=== PATIENT | female | born 1980 | race Caucasian/White ===

== ENCOUNTER 2021-06-27 11:59 | Inpatient (IN) | payer OTHER ==
[2021-06-27] MEDS ORDERED: Ventolin HFA Inhaler 60 PUFF INHALER ONE (12:47)
[2021-06-27 12:58] LABS: #Eosinphils 0.2 10x3/uL (0.0-0.5); #Monocytes 0.6 10x3/uL (0.0-1.1); #Neutrophils 10.1 10x3/uL (1.5-8.4); %Basophils 0.2 % (0.0-2.0); %Eosinophils 1.3 % (0.0-6.0); %Lymphocytes 10.5 % (18.0-47.0); %Monocytes 5.2 % (0.0-10.0); %Neutrophils 81.7 % (40.0-75.0); Hemoglobin 13.6 g/dL (12.0-15.5); Mean Corpuscular HGB CONC 33.1 g/dL (32.0-36.0); Mean Corpuscular Hemoglobin 30.8 pg (27.0-33.0); Mean Corpuscular Volume 93.2 fl (81.6-98.3); Platelet Count 318 10x3/uL (150-450); RBC Distribution Width 12.5 % (11.5-14.5); Red Blood Cell (RBC) Count 4.41 10x6/uL (3.90-5.03); White Blood Cell (WBC) Count 12.3 10x3/uL (3.5-10.5)
[2021-06-27 14:01] LABS: Albumin 3.2 g/dL (3.5-5.0); Alkaline Phosphatase 85 U/L (40-110); Anion Gap 15 mmol/L (10-20); BUN (Urea Nitrogen) 11 mg/dL (7.0-18.7); Bilirubin, Total 0.6 mg/dL (0.2-1.2); Calc. Creatinine Clearance 0 mL/min (70-130); Calcium 8.3 mg/dL (7.8-10.44); Carbon Dioxide 21 mmol/L (22-29); Chloride 107 mmol/L (98-107); Globulin 2.6 g/dL (2.4-3.5); Glucose 98 mg/dL (70-105); Potassium 3.9 mmol/L (3.5-5.1); Protein, Total 5.8 g/dL (6.0-8.3); Sodium 139 mmol/L (136-145)
[2021-06-27 14:02] LABS: ALT (SGPT) 53 U/L (8-55); AST (SGOT) 44 U/L (5-34)
[2021-06-27 15:32] LABS: BHCG - Serum Negative (NEGATIVE); Pregs Control Background? CLEAR/WHITE (CLR/WHITE); Pregs Control Bar Appear? YES (CONTROL BAR)
[2021-06-27] MEDS ORDERED: Dexamethasone 10 MG/ML VIAL ONE (16:55)
[2021-06-27] MEDS ORDERED: Acetaminophen 650 MG Suppository PR PRN (17:12)
[2021-06-27] MEDS ORDERED: Ondansetron ODT 4 MG TAB PO PRN (17:12)
[2021-06-27] MEDS: Benzonatate 100 MG CAP PO PRN (21:17)
[2021-06-27] MEDS: Acetaminophen 325 MG TAB PO PRN (21:17)
[2021-06-27 22:32] VITALS: BMI 31.8
[2021-06-27] MEDS: Ventolin HFA Inhaler 60 PUFF INHALER INH SCH (22:45)
[2021-06-28] MEDS ORDERED: Hydrocortisone 2.5% Cream 30 GM TUBE TOP PRN (03:00)
[2021-06-28] MEDS: Ventolin HFA Inhaler 60 PUFF INHALER INH SCH ×6 (03:15→23:02)
[2021-06-28 05:26] LABS: ALT (SGPT) 51 U/L (8-55); AST (SGOT) 33 U/L (5-34); Albumin 3.2 g/dL (3.5-5.0); Alkaline Phosphatase 88 U/L (40-110); Anion Gap 15 mmol/L (10-20); BUN (Urea Nitrogen) 8 mg/dL (7.0-18.7); Bilirubin, Total 0.3 mg/dL (0.2-1.2); Calc. Creatinine Clearance 148 mL/min (70-130); Calcium 8.8 mg/dL (7.8-10.44); Carbon Dioxide 23 mmol/L (22-29); Chloride 108 mmol/L (98-107); Globulin 2.8 g/dL (2.4-3.5); Glucose 170 mg/dL (70-105); Potassium 4.5 mmol/L (3.5-5.1); Sodium 141 mmol/L (136-145)
[2021-06-28 05:37] LABS: #Monocytes 0.3 10x3/uL (0.0-1.1); %Basophils 0.3 % (0.0-2.0); %Lymphocytes 8.8 % (18.0-47.0); %Monocytes 4.3 % (0.0-10.0); %Neutrophils 84.6 % (40.0-75.0); Hemoglobin 13.2 g/dL (12.0-15.5); Mean Corpuscular HGB CONC 32.9 g/dL (32.0-36.0); Mean Corpuscular Hemoglobin 30.6 pg (27.0-33.0); Mean Corpuscular Volume 92.8 fl (81.6-98.3); Mean Platelet Volume 9.5 fl (7.4-10.4); Platelet Count 254 10x3/uL (150-450); RBC Distribution Width 12.3 % (11.5-14.5); Red Blood Cell (RBC) Count 4.32 10x6/uL (3.90-5.03); White Blood Cell (WBC) Count 7.1 10x3/uL (3.5-10.5)
[2021-06-28] MEDS ORDERED: Dexamethasone 20 MG/5 ML VIAL SLOW IVP SCH (09:00)
[2021-06-28] MEDS: Cholecalciferol (Vitamin D3) 400 UNITS TAB PO SCH (09:36)
[2021-06-28] MEDS: Ascorbic Acid 500 mg Chewable Tablet PO SCH (09:37)
[2021-06-28] MEDS: Enoxaparin Sodium 40 MG/0.4 ML SYRINGE SC SCH (09:37)
[2021-06-28] MEDS: Zinc Sulfate 220 MG CAP PO SCH (09:37)
[2021-06-28] MEDS: Benzonatate 100 MG CAP PO PRN ×2 (09:38→20:51)
[2021-06-28] MEDS ORDERED: Ibuprofen 400 MG TAB PO PRN (12:39)
[2021-06-28] MEDS: Dexamethasone 20 MG/5 ML VIAL SLOW IVP SCH (20:51)
[2021-06-29] MEDS: Ventolin HFA Inhaler 60 PUFF INHALER INH SCH ×6 (03:23→23:00)
[2021-06-29 05:56] LABS: #Monocytes 0.5 10x3/uL (0.0-1.1); %Basophils 0.1 % (0.0-2.0); %Lymphocytes 7.3 % (18.0-47.0); %Monocytes 3.3 % (0.0-10.0); Hemoglobin 12.4 g/dL (12.0-15.5); Mean Corpuscular Hemoglobin 30.6 pg (27.0-33.0); Mean Corpuscular Volume 92.8 fl (81.6-98.3); Mean Platelet Volume 9.4 fl (7.4-10.4); Platelet Count 303 10x3/uL (150-450); RBC Distribution Width 12.5 % (11.5-14.5); Red Blood Cell (RBC) Count 4.05 10x6/uL (3.90-5.03); White Blood Cell (WBC) Count 15.9 10x3/uL (3.5-10.5)
[2021-06-29] MEDS: Acetaminophen 325 MG TAB PO PRN (05:56)
[2021-06-29 06:08] LABS: ALT (SGPT) 41 U/L (8-55); AST (SGOT) 19 U/L (5-34); Albumin 3.3 g/dL (3.5-5.0); Alkaline Phosphatase 76 U/L (40-110); Anion Gap 14 mmol/L (10-20); BUN (Urea Nitrogen) 14 mg/dL (7.0-18.7); Bilirubin, Total 0.3 mg/dL (0.2-1.2); Calc. Creatinine Clearance 153 mL/min (70-130); Calcium 9.1 mg/dL (7.8-10.44); Carbon Dioxide 22 mmol/L (22-29); Chloride 109 mmol/L (98-107); Globulin 2.6 g/dL (2.4-3.5); Glucose 196 mg/dL (70-105); Potassium 4.4 mmol/L (3.5-5.1); Protein, Total 5.9 g/dL (6.0-8.3); Sodium 141 mmol/L (136-145)
[2021-06-29] MEDS: Cholecalciferol (Vitamin D3) 400 UNITS TAB PO SCH (09:26)
[2021-06-29] MEDS: Dexamethasone 20 MG/5 ML VIAL SLOW IVP SCH ×2 (09:26→20:57)
[2021-06-29] MEDS: Ascorbic Acid 500 mg Chewable Tablet PO SCH (09:26)
[2021-06-29] MEDS: Enoxaparin Sodium 40 MG/0.4 ML SYRINGE SC SCH (09:26)
[2021-06-29] MEDS: Zinc Sulfate 220 MG CAP PO SCH (09:26)
[2021-06-29] MEDS: cefTRIAXone\\ROCEPHIN 2 GM in Sodium Chloride 0.9% 100 ML IVPB SCH (17:32)
[2021-06-29] MEDS: Doxycycline 100 MG CAP PO SCH (20:57)
[2021-06-30] MEDS: Ventolin HFA Inhaler 60 PUFF INHALER INH SCH ×6 (02:55→23:00)
[2021-06-30 05:40] LABS: #Basophils 0.1 10x3/uL (0.0-0.2); %Basophils 0.3 % (0.0-2.0); %Lymphocytes 9.6 % (18.0-47.0); %Monocytes 5.3 % (0.0-10.0); %Neutrophils 81.9 % (40.0-75.0); Hemoglobin 12.6 g/dL (12.0-15.5); Mean Corpuscular HGB CONC 32.1 g/dL (32.0-36.0); Mean Corpuscular Hemoglobin 30.1 pg (27.0-33.0); Mean Corpuscular Volume 93.8 fl (81.6-98.3); Mean Platelet Volume 9.4 fl (7.4-10.4); Platelet Count 386 10x3/uL (150-450); RBC Distribution Width 12.5 % (11.5-14.5); Red Blood Cell (RBC) Count 4.18 10x6/uL (3.90-5.03); White Blood Cell (WBC) Count 19.5 10x3/uL (3.5-10.5)
[2021-06-30 05:45] LABS: Anion Gap 16 mmol/L (10-20); BUN (Urea Nitrogen) 15 mg/dL (7.0-18.7); CRP (Inflammatory) 3.03 mg/dL (= or < 0.5); Calc. Creatinine Clearance 141 mL/min (70-130); Calcium 9.3 mg/dL (7.8-10.44); Carbon Dioxide 23 mmol/L (22-29); Chloride 107 mmol/L (98-107); Glucose 179 mg/dL (70-105); Potassium 4.4 mmol/L (3.5-5.1); Sodium 142 mmol/L (136-145)
[2021-06-30] MEDS: Cholecalciferol (Vitamin D3) 400 UNITS TAB PO SCH (09:35)
[2021-06-30] MEDS: Enoxaparin Sodium 40 MG/0.4 ML SYRINGE SC SCH (09:35)
[2021-06-30] MEDS: Dexamethasone 20 MG/5 ML VIAL SLOW IVP SCH ×2 (09:35→21:05)
[2021-06-30] MEDS: Ascorbic Acid 500 mg Chewable Tablet PO SCH (09:35)
[2021-06-30] MEDS: Doxycycline 100 MG CAP PO SCH ×2 (09:39→21:05)
[2021-06-30] MEDS: Zinc Sulfate 220 MG CAP PO SCH (13:02)
[2021-06-30] MEDS: cefTRIAXone\\ROCEPHIN 2 GM in Sodium Chloride 0.9% 100 ML IVPB SCH (18:00)
[2021-06-30] MEDS: Benzonatate 100 MG CAP PO PRN (21:05)
[2021-07-01] MEDS: Ventolin HFA Inhaler 60 PUFF INHALER INH SCH ×6 (03:00→23:02)
[2021-07-01] MEDS: Ascorbic Acid 500 mg Chewable Tablet PO SCH (08:53)
[2021-07-01] MEDS: Dexamethasone 20 MG/5 ML VIAL SLOW IVP SCH ×2 (08:53→21:48)
[2021-07-01] MEDS: Cholecalciferol (Vitamin D3) 400 UNITS TAB PO SCH (08:53)
[2021-07-01] MEDS: Doxycycline 100 MG CAP PO SCH ×2 (08:53→21:48)
[2021-07-01] MEDS: Enoxaparin Sodium 40 MG/0.4 ML SYRINGE SC SCH (08:53)
[2021-07-01 11:28] LABS: Hemoglobin 13.1 g/dL (12.0-15.5); MDiff Complete? YES; Mean Corpuscular HGB CONC 32.8 g/dL (32.0-36.0); Mean Corpuscular Hemoglobin 30.5 pg (27.0-33.0); Mean Platelet Volume 9.1 fl (7.4-10.4); Platelet Count 365 10x3/uL (150-450); RBC Distribution Width 12.5 % (11.5-14.5); White Blood Cell (WBC) Count 23.3 10x3/uL (3.5-10.5)
[2021-07-01 12:02] LABS: Lymphocytes 12 % (21-51); Metamyelocyte 1 % (0-0); Monocytes 6 % (0-10); Neutrophil 81 % (42-75)
[2021-07-01 12:03] LABS: Platelet Morphology Comment Appears Adequate
[2021-07-01] MEDS: Zinc Sulfate 220 MG CAP PO SCH (12:55)
[2021-07-01] MEDS: cefTRIAXone\\ROCEPHIN 2 GM in Sodium Chloride 0.9% 100 ML IVPB SCH (17:44)
[2021-07-02] MEDS: Ventolin HFA Inhaler 60 PUFF INHALER INH SCH ×6 (03:00→22:20)
[2021-07-02 04:56] LABS: Hemoglobin 13.7 g/dL (12.0-15.5); Mean Corpuscular HGB CONC 32.7 g/dL (32.0-36.0); Mean Corpuscular Hemoglobin 30.2 pg (27.0-33.0); Mean Corpuscular Volume 92.5 fl (81.6-98.3); Mean Platelet Volume 9.4 fl (7.4-10.4); Platelet Count 389 10x3/uL (150-450); RBC Distribution Width 12.5 % (11.5-14.5); Red Blood Cell (RBC) Count 4.53 10x6/uL (3.90-5.03); White Blood Cell (WBC) Count 23.5 10x3/uL (3.5-10.5)
[2021-07-02 05:14] LABS: MDiff Complete? YES
[2021-07-02 05:17] LABS: Band 1 % (5-11); Lymphocytes 12 % (21-51); Monocytes 6 % (0-10); Myelocyte 2 % (0-0); Neutrophil 79 % (42-75)
[2021-07-02 05:18] LABS: Platelet Morphology Comment Appears Adequate; RBC Morphology Normal
[2021-07-02] MEDS: Enoxaparin Sodium 40 MG/0.4 ML SYRINGE SC SCH (08:01)
[2021-07-02] MEDS: Doxycycline 100 MG CAP PO SCH ×2 (08:01→20:14)
[2021-07-02] MEDS: Ascorbic Acid 500 mg Chewable Tablet PO SCH (08:02)
[2021-07-02] MEDS: Dexamethasone 20 MG/5 ML VIAL SLOW IVP SCH ×2 (08:02→20:13)
[2021-07-02] MEDS: Cholecalciferol (Vitamin D3) 400 UNITS TAB PO SCH (08:02)
[2021-07-02] MEDS: Zinc Sulfate 220 MG CAP PO SCH (12:05)
[2021-07-02] MEDS: cefTRIAXone\\ROCEPHIN 2 GM in Sodium Chloride 0.9% 100 ML IVPB SCH (15:46)
[2021-07-03] MEDS: Ventolin HFA Inhaler 60 PUFF INHALER INH SCH ×6 (02:05→22:40)
[2021-07-03 05:38] LABS: Hemoglobin 13.4 g/dL (12.0-15.5); Mean Corpuscular HGB CONC 32.9 g/dL (32.0-36.0); Mean Corpuscular Hemoglobin 30.4 pg (27.0-33.0); Mean Corpuscular Volume 92.3 fl (81.6-98.3); Mean Platelet Volume 9.4 fl (7.4-10.4); Platelet Count 331 10x3/uL (150-450); RBC Distribution Width 12.4 % (11.5-14.5); Red Blood Cell (RBC) Count 4.41 10x6/uL (3.90-5.03); White Blood Cell (WBC) Count 23.6 10x3/uL (3.5-10.5)
[2021-07-03 05:46] LABS: MDiff Complete? YES
[2021-07-03 06:02] LABS: Lymphocytes 7 % (21-51); Monocytes 3 % (0-10); Neutrophil 89 % (42-75); Reactive Lymphocytes 1 % (0-10)
[2021-07-03 06:03] LABS: Platelet Morphology Comment Appears Adequate
[2021-07-03 06:04] LABS: RBC Morphology Normal
[2021-07-03] MEDS: Ascorbic Acid 500 mg Chewable Tablet PO SCH (08:26)
[2021-07-03] MEDS: Enoxaparin Sodium 40 MG/0.4 ML SYRINGE SC SCH (08:26)
[2021-07-03] MEDS: Dexamethasone 20 MG/5 ML VIAL SLOW IVP SCH (08:26)
[2021-07-03] MEDS: Cholecalciferol (Vitamin D3) 400 UNITS TAB PO SCH (08:26)
[2021-07-03] MEDS: Doxycycline 100 MG CAP PO SCH ×2 (08:29→20:13)
[2021-07-03] MEDS: Zinc Sulfate 220 MG CAP PO SCH (12:16)
[2021-07-03] MEDS: Acetaminophen 325 MG TAB PO PRN (12:20)
[2021-07-03] MEDS: cefTRIAXone\\ROCEPHIN 2 GM in Sodium Chloride 0.9% 100 ML IVPB SCH (15:26)
[2021-07-03] MEDS ORDERED: Dexamethasone 4 MG TAB PO SCH (21:00)
[2021-07-04] MEDS: Ventolin HFA Inhaler 60 PUFF INHALER INH SCH ×4 (06:10→14:35)
[2021-07-04] MEDS ORDERED: Dexamethasone 4 MG TAB PO SCH (09:00)
[2021-07-04] MEDS: Ascorbic Acid 500 mg Chewable Tablet PO SCH (09:14)
[2021-07-04] MEDS: Cholecalciferol (Vitamin D3) 400 UNITS TAB PO SCH (09:14)
[2021-07-04] MEDS: Enoxaparin Sodium 40 MG/0.4 ML SYRINGE SC SCH (09:14)
[2021-07-04] MEDS: Zinc Sulfate 220 MG CAP PO SCH (13:44)
[2021-07-04 13:45] VITALS: BP 119/70; TEMP 98.2
== END 2021-07-04 16:33 | disposition home or self-care (01) | DRG 177 ==
LOC: CSHERS 11:59 → CSHTELE 17:11 → OBSVTOIN 17:12 → UNDOADMOB 19:41 → CSHTELE 19:41
PROVIDERS: ADMIT Student in an Organized Health Care Education/Training Program; ATTEND Internal Medicine
PROC: 3E0333Z Introduction of Anti-inflammatory into Peripheral Vein, Percutaneous Approach (ICD-10-PCS; principal; 2021-06-27)
PROC: 8E0ZXY6 Isolation (ICD-10-PCS; 2021-06-27)
DX: U07.1 COVID-19 (principal); J12.82 Pneumonia due to coronavirus disease 2019; J96.01 Acute respiratory failure with hypoxia; J45.909 Unspecified asthma, uncomplicated; E04.1 Nontoxic single thyroid nodule; R53.81 Other malaise
CPT/HCPCS: 36415; 71045; 71275; 80048; 80053; 82728; 84145; 84484; 84703; 85025; 85379; 86140; 93005; 94664; 94760; 96374; J0696; J1100; J1650; J3490; J8540